=== PATIENT | male | born 2005 | race Caucasian/White ===

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

== ENCOUNTER → 2025-03-07 | Outpatient (REF) | payer BC ==
[~2025-03-07] MED LIST changes: +DOXY-441 PO; -DOXY-443 PO
== END ==
LOC: M SFHCLERA 11:17
PROVIDERS: ATTEND Internal Medicine
DX: Z53.9 Procedure and treatment not carried out, unspecified reason (principal)